=== PATIENT | female | born 1985 | race Asian ===

== ENCOUNTER 2022-06-09 06:02 | Inpatient (IN) | payer OTHER ==
[~2022-06-09] VITALS: Ht 162.6 cm; Wt 64.4 kg
[2022-06-09] MEDS ORDERED: NALBUPHINE HCL 10 MG/ML AMP IVP PRN (07:30)
[2022-06-09] MEDS ORDERED: LR 1,000 ML IV SCH (07:30)
[2022-06-09] MEDS ORDERED: LR 1,000 ML IV ONE (07:30)
[2022-06-09] MEDS ORDERED: OXYTOCIN/0.9 % SODIUM CHLORIDE 1,000 ML IV SCH (07:30)
[2022-06-09] MEDS ORDERED: LR 500 ML IV ONE ×2 (07:30→14:00)
[2022-06-09] MEDS ORDERED: TERBUTALINE SULFATE 1 MG/ML VIAL SUBCUT ONE (07:30)
[2022-06-09 08:07] LABS: BASOPHILS % (AUTO) 0.3 % (0.0-2.0); EOSINOPHILS % (AUTO) 0.2 % (0.0-4.0); HEMATOCRIT 42.1 % (36-48); HEMOGLOBIN 14.1 g/dL (12.0-16.0); LYMPHOCYTES # (AUTO) 0.9 K/uL (1.0-5.5); LYMPHOCYTES % (AUTO) 13.5 % (20.5-51.5); MEAN CORPUSCULAR HEMOGLOBIN 31 pg (27-31); MEAN CORPUSCULAR HGB CONC 34 % (32-36); MEAN CORPUSCULAR VOLUME 94 fL (79.0-98.0); MONOCYTES # (AUTO) 0.5 K/uL (0.0-1.0); MONOCYTES % (AUTO) 8.1 % (1.7-9.3); NEUTROPHILS % (AUTO) 77.9 % (40.0-70.0); PLATELET COUNT (AUTO) 217 K/uL (130-430); WHITE BLOOD COUNT (AUTO) 6.4 K/uL (4.8-10.8)
[2022-06-09] MEDS ORDERED: AMPICILLIN SODIUM 2 GM VIAL ONE (08:19)
[2022-06-09] MEDS ORDERED: AMPICILLIN SODIUM 2 GM in NS 100 ML IV ONE (08:30)
[2022-06-09] MEDS ORDERED: ePHEDrine sulfate 50 MG/ML VIAL IVP PRN (14:00)
[2022-06-09] MEDS ORDERED: ROPIVACAINE HCL/PF 0.2% 100 ML EP SCH (14:00)
[2022-06-09] MEDS ORDERED: FENT2mCg/mL-ROPIVA0.2%/NS EPID 200 ML EP SCH (14:00)
[2022-06-09] MEDS ORDERED: NALOXONE HCL 0.4 MG/ML AMP (NARCAN) ONE (16:20)
[2022-06-09] MEDS ORDERED: LIDOCAINE PF 1% 30ML(POUR BTL) INJ ONE (16:20)
[2022-06-09] MEDS ORDERED: LIGHT MINERAL OIL 10 ML VIAL MC ONE (16:20)
[2022-06-09] MEDS ORDERED: AMPICILLIN SODIUM 1 GM in NS 50 ML IV ONE (16:45)
[2022-06-09] MEDS ORDERED: ACETAMINOPHEN I.V. 1000 MG 100 ML IV ONE (16:45)
[2022-06-09] MEDS ORDERED: AMPICILLIN SODIUM 1 GM VIAL ONE (16:53)
[2022-06-09] MEDS ORDERED: RHO(D) IMMUNE GLOBULIN/MALTOSE 1500 UNITS/1.3 ML (WINHRO) IM PRN (19:00)
[2022-06-09] MEDS ORDERED: MEASLES,MUMPS&RUBELLA VACC/PF 12500 UNIT/0.5 ML VIAL SUBQ PRN (19:00)
[2022-06-09] MEDS ORDERED: HYDROCORTISONE 0.5% CREAM 28.4 GM CREAM.GM. TP PRN (19:00)
[2022-06-09] MEDS ORDERED: HYDROcodone/ACETAMIN 5-325 MG TAB (NORCO/ VICODIN) PO PRN (19:00)
[2022-06-09] MEDS ORDERED: METHYLERGONOVINE MALEATE 0.2 MG TABLET PO PRN (19:00)
[2022-06-09] MEDS ORDERED: LANOLIN 7 GM OINT. TP PRN (19:00)
[2022-06-09] MEDS ORDERED: NALOXONE HCL 0.4 MG/ML AMP (NARCAN) IVP PRN (19:00)
[2022-06-09] MEDS ORDERED: DIPHTH,PERTUSS(ACELL),TET VAC 0.5 ML VIAL (Tdap) I.M. PRN (19:00)
[2022-06-09] MEDS ORDERED: WITCH HAZEL LEAF 1 MED.PAD MED.PAD TP PRN (19:00)
[2022-06-09] MEDS ORDERED: OXYCODONE/ACETAMINOPHEN 5-325 TABLET PO PRN ×2 (19:00)
[2022-06-09] MEDS ORDERED: ANUSOL 1 EA SUPP.RECT (PREPARATION H) RC PRN (19:00)
[2022-06-09] MEDS ORDERED: DERMOPLAST SPRAY TP PRN (19:00)
[2022-06-09] MEDS ORDERED: OXYTOCIN/0.9 % SODIUM CHLORIDE 1,000 ML IV ONE (19:00)
[2022-06-09] MEDS: OXYTOCIN/0.9 % SODIUM CHLORIDE 1,000 ML IV SCH (20:26)
[2022-06-09] MEDS ORDERED: TEMAZEPAM 15 MG CAPSULE PO PRN (21:00)
[2022-06-09] MEDS ORDERED: SENNOSIDES/DOCUSATE SODIUM 1 TAB TABLET(SENOKOT-S) PO SCH (21:00)
[2022-06-10] MEDS: IBUPROFEN 600 MG TABLET PO SCH ×5 (00:10→23:58)
[2022-06-10 03:05] VITALS: BP_SYST 132
[2022-06-10] MEDS: OXYTOCIN/0.9 % SODIUM CHLORIDE 1,000 ML IV SCH (04:51)
[2022-06-10 06:49] LABS: BASOPHILS # (AUTO) 0.1 K/uL (0.0-0.2); BASOPHILS % (AUTO) 0.4 % (0.0-2.0); EOSINOPHILS % (AUTO) 0.2 % (0.0-4.0); HEMATOCRIT 35.7 % (36-48); HEMOGLOBIN 11.7 g/dL (12.0-16.0); LYMPHOCYTES # (AUTO) 1.3 K/uL (1.0-5.5); MEAN CORPUSCULAR HEMOGLOBIN 31 pg (27-31); MEAN CORPUSCULAR HGB CONC 33 % (32-36); MEAN CORPUSCULAR VOLUME 94 fL (79.0-98.0); MONOCYTES # (AUTO) 0.9 K/uL (0.0-1.0); MONOCYTES % (AUTO) 6.9 % (1.7-9.3); NEUTROPHILS # (AUTO) 10.9 K/uL (1.8-7.7); NEUTROPHILS % (AUTO) 82.5 % (40.0-70.0); PLATELET COUNT (AUTO) 162 K/uL (130-430); RED CELL DISTRIBUTION WIDTH 12.7 % (9.0-15.0); WHITE BLOOD COUNT (AUTO) 13.2 K/uL (4.8-10.8)
[2022-06-10] MEDS: DOCUSATE SODIUM 100 MG CAPSULE PO SCH (09:20)
[2022-06-10] MEDS ORDERED: fentaNYL CITRATE/PF 100 MCG/2 ML AMP ONE (11:37)
[2022-06-10] MEDS ORDERED: ROPIVACAINE HCL/PF 0.2% 200 ML ONE (11:37)
[2022-06-10 20:00] VITALS: BP_SYST 131
[2022-06-10 21:20] VITALS: BP_SYST 131
[2022-06-11] MEDS: IBUPROFEN 600 MG TABLET PO SCH ×2 (06:51→12:12)
[2022-06-11] MEDS: DOCUSATE SODIUM 100 MG CAPSULE PO SCH (12:12)
== END 2022-06-11 16:40 | disposition home or self-care (01) | DRG 806 ==
LOC: SPU 06:02
PROVIDERS: ADMIT Specialist; ATTEND Specialist
PROC: 10D07Z6 Extraction of Products of Conception, Vacuum, Via Natural or Artificial Opening (ICD-10-PCS; principal; 2022-06-09)
PROC: 0W8NXZZ Division of Female Perineum, External Approach (ICD-10-PCS; 2022-06-09)
PROC: 3E0R3BZ Introduction of Anesthetic Agent into Spinal Canal, Percutaneous Approach (ICD-10-PCS; 2022-06-09)
PROC: 00HU33Z Insertion of Infusion Device into Spinal Canal, Percutaneous Approach (ICD-10-PCS; 2022-06-09)
DX: O42.92 Full-term premature rupture of membranes, unspecified as to length of time between rupture and onset of labor (principal); D62 Acute posthemorrhagic anemia; Z37.0 Single live birth; O69.81X0 Labor and delivery complicated by cord around neck, without compression, not applicable or unspecified; Z20.822 Contact with and (suspected) exposure to COVID-19; Z3A.39 39 weeks gestation of pregnancy
CPT/HCPCS: 36415; 81002; 85025; 86592; 86886; 86900; 86901; 94760; J0131; J0290; J2001; J2300; J2310; J2590; J3010